=== PATIENT | female | born 1990 | race Hispanic/Latino ===

== ENCOUNTER 2024-05-24 21:43 | Emergency (ER) | payer MEDICAID, SELFPAY ==
[2024-05-24 21:44] VITALS: BP 194/111
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
[2024-05-24] MEDS: TYLENOL 650 MG PO (23:18)
[2024-05-24 23:29] VITALS: BP 138/85
== END 2024-05-24 23:31 | disposition home or self-care (01) ==
LOC: EMR 21:43
PROVIDERS: EMERGENCY PHYSICIAN Student in an Organized Health Care Education/Training Program
DX: S40.012A Contusion of left shoulder, initial encounter (principal); X58.XXXA Exposure to other specified factors, initial encounter; J45.909 Unspecified asthma, uncomplicated; G47.30 Sleep apnea, unspecified
CPT/HCPCS: 99283; 73030

== ENCOUNTER 2024-07-06 18:34 | Emergency (ER) | payer SELFPAY ==
[2024-07-06 18:39] VITALS: BP 179/108
[2024-07-06 19:29] LABS: COVID-19 Antigen Negative (Negative)
--- NOTE | 2024-07-06 21:46 | ED.GENMED ---
History of Present Illness
General
Chief Complaint: Cold/Flu/URI Symptoms
Source: patient
Exam Limitations: none
Time Seen by Provider: 07/06/24 21:29
History of Present Illness
History of Present Illness:
This is a 34 year old female that comes in with c/o cough and sore throat with some chest discomfort. States that the chest discomfort is with coughing. States that this started on Tuesday as she felt sick and on she felt worse. States
that she feels SOB with the cough and has a headache. Denies any fever, chills, chest pain, abd pain, nausea, vomiting, diarrhea, dizziness, urinary burning.
Past History
Past History
ED Past Medical History: Asthma, Psychiatric (Anxiety, Bipolar, Depression) and Other (Sleep apnea, Bronchitis, )
ED Past Surgical History: Orthopedic (right arm surgery)
Social History
Tobacco: Smoker
Alcohol: None
Drug: None
Personal: Single
Living: with family
Employment: Employed
Review of Systems
Review of Systems
All Other Systems: ROS reviewed and negative except as documented in HPI and ROS
Constitutional: Reports no symptoms; Denies fever or chills
EENT: Reports sore throat
Respiratory: Reports cough and trouble breathing
Cardiac: Reports no symptoms; Denies chest pain
ABD/GI: Reports no symptoms; Denies abdominal pain, nausea, vomiting or diarrhea
: Reports no symptoms; Denies dysuria, frequency or urgency
Musculoskeletal: Reports no symptoms
Skin: Reports no symptoms
Neurological: Reports headache; Denies dizzy
Psychiatric: Reports no symptoms
Phy Exam
General Physical Exam
General Presentation: well appearing and no apparent distress
General age: appears stated age
General Skin: warm and dry
General Habitus: normal
General Mental: alert
General Hydration: appears well hydrated
ENT Exam
ENT Exam: TM's normal, pharynx normal and neck supple
Eye Exam
Eye Exam: EOMI
Cardiovascular Exam
Cardiovascular Exam: regular rate/rhythm, no edema, no murmur and normal peripheral pulses
Pulmonary Exam
Pulmonary Exam: no respiratory distress, no rales, chest non tender, no crackles, no rhonchi, no stridor and other (faint insp wheezing throughout, Dry cough noted)
Musculoskeletal Exam
Musculoskeletal Exam: full ROM and no edema
Skin Exam
Skin Exam: normal color, warm/dry, no rash and no petechia
Psychiatric Exam
Psychiatric Exam: normal mood/affect
Course
Orders/Labs/Results
Orders:
Orders
07/06/24 18:42
Chest [CR Chest - 2 Views ] Urgent
Comment:
Reason For Exam: cough
07/06/24 18:47
COVID-19 Antigen Urgent
Source: Nasal Swab
Influenza A+B Rapid Molecular Urgent
[facility] Source: Nasal Swab
Specimen Description:
07/06/24 21:47
Prednisone [Deltasone] 40 mg PO NOW STA
07/06/24 22:02
Rapid Strep Group A Urgent
[facility] Source: Throat/Pharynx
Specimen Description:
Date Specimen was Collected: 07/06/24
Time Specimen was Collected: 21:56
COVID and Influenza negative
Vital Signs
Initial and Last Documented VS:
Initial Vital Signs
Temp Pulse Resp BP Pulse Ox
98.5 F 120 16 179/108 98
07/06/24 18:39 07/06/24 18:39 07/06/24 18:39 07/06/24 18:39 07/06/24 18:39
Last Documented Vital Signs
Temp Pulse Resp BP Pulse Ox
98.5 F 92 18 125/71 98
07/06/24 18:39 07/06/24 22:13 07/06/24 22:13 07/06/24 22:13 07/06/24 22:13
MDM/Problems Addressed
Differential Diagnosis Includes:
Asthma, COVID, Flu
MDM/Problems Addressed:
This is a 34 year old female that comes in with c/o cough and SOB. States that this started on Tuesday and on she felt worse.
Explained to patient that she has faint Insp wheezing throughout. Patient chest x-ray is negative and she is negative for COVID and Influenza. Will get Rapid strep. IF negative will dischrage patient home on Steroids and give a prescription for an
albuterol inhaler. Patient encouraged to increase her water intake to 8-8oz glasses daily. Return with any concerns.
Chronic conditions affecting care: Asthma
Acute Exacerbation and/or Progression of Chronic Illness: Asthma
*Radiology
Radiology exam reviewed: radiology read reviewed (Chest- No acute cardiopulmonary process. )
*Pulse Oximetry
Patient hypoxic: no
*EKG
Interpreted by ED Provider?: NA
Rate: EKG- N/A
*Client Account Manager Interpretation
Rate: Client Account Manager- N/A
*Critical Care Note
Total Time (30-74mins, 75-104mins- exclusive of procedures): Not Applicable
ED Attending Note
-
Portions of this chart may have been created with voice recognition software.� Occasional wrong word or��sound alike� substitutions may have occurred due to the inherent limitations of voice recognition software.
Discharge Plan
Departure
Patient Disposition: Home (Routine Discharge)
Date of Disposition: 07/06/24
Time of Disposition: 22:38
Patient with high blood pressure during this ER visit?: No
Condition: Good
Covid-19: Negative COVID-19
Discharge Problem:
Asthma
Instructions: Asthma, Adult ED
Prescriptions:
New
prednisone 20 mg tablet
40 mg PO DAILY Qty: 8 0RF
albuterol sulfate 90 mcg/actuation HFA aerosol inhaler
2 puff inhalation Q4H PRN (Reason: shortness of breath or wheezing) Qty: 8.5 0RF
No Action
famotidine 20 MG tablet
20 mg PO BID Qty: 28 0RF
Rx Instructions:
Take 20 mg twice a day for 14 days
ascorbic acid (vitamin C) [Vitamin C] 500 MG tablet
1,000 mg PO BID Qty: 56 0RF
Rx Instructions:
Take 1,000 mg twice a day for 14 days
aspirin 81 MG tablet,chewable
81 mg PO DAILY Qty: 14 0RF
Rx Instructions:
Take 81 mg daily for 14 days
albuterol sulfate 1 PUFF HFA aerosol inhaler
2 puff inhalation R Q4HPRN PRN (Reason: shortness of breath) Qty: 1 0RF
zinc sulfate 220 MG capsule
220 mg PO DAILY Qty: 14 0RF
Rx Instructions:
Take 220 mg daily for 14 days
cholecalciferol (vitamin D3) 1,000 UNITS tablet
2,000 units PO DAILY Qty: 28 0RF
Rx Instructions:
Take 2,000 units daily for 14 days
melatonin 5 MG tablet
5 mg PO HS Qty: 14 0RF
Rx Instructions:
Take 5 mg daily at bedtime for 14 days
Referrals:
NONE,* [Family Provider] -
Activity Restrictions/Additional Instructions:
As discussed, you are negative for COVID, Influenza and Your rapid strep is negative. Your chest X-ray is normal. This is most likely your asthma as you are a little wheezy. You have been given your first dose of Prednisone here and a prescription
has been sent to your pharmacy for the next 4 days. You have also had a prescription sent to an Albuterol inhaler. Please follow up with the family doctor for recheck. Please increase your water intake to 8-8oz glasses daily. IF YOU HAVE ANY OTHER
CONCERNS PLEASE RETURN TO THE EMERGENCY ROOM.
Interventions
Interventions:
*Risk Screen - Suicide Last Done: 07/06/24 18:41
*General Assessment Last Done: 07/06/24 22:10
*Neglect/Abuse Screening Last Done: 07/06/24 18:41
ED- Pulmonary Assessment Last Done: 07/06/24 22:10
Discharge Date and Time
Print Language: JAPANESE
[2024-07-06] MEDS: DELTASONE 40 MG PO (22:08)
[2024-07-06 22:13] VITALS: BP 125/71
[2024-07-06 22:51] VITALS: BP 146/96
== END 2024-07-06 22:52 | disposition home or self-care (01) ==
LOC: EMR 18:34
PROVIDERS: Registered Nurse; EMERGENCY PHYSICIAN Emergency Medicine
DX: J45.909 Unspecified asthma, uncomplicated (principal); Z11.52 Encounter for screening for COVID-19; F17.200 Nicotine dependence, unspecified, uncomplicated
CPT/HCPCS: 99284; 71046; 87070; 87502; 87811; 87880

== ENCOUNTER 2024-10-26 11:10 | Emergency (ER) | payer MEDICAID, SELFPAY ==
[2024-10-26 11:12] VITALS: BP 133/75
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
[2024-10-26] MEDS: MOTRIN 400 MG PO (13:20)
== END 2024-10-26 13:29 | disposition home or self-care (01) ==
LOC: EMR 11:10
PROVIDERS: EMERGENCY PHYSICIAN Student in an Organized Health Care Education/Training Program
DX: S46.911A Strain of unspecified muscle, fascia and tendon at shoulder and upper arm level, right arm, initial encounter (principal); X58.XXXA Exposure to other specified factors, initial encounter; F17.200 Nicotine dependence, unspecified, uncomplicated
CPT/HCPCS: 99283; 73030

== ENCOUNTER 2025-07-29 12:13 | Emergency (ER) | payer SELFPAY ==
[2025-07-29 12:15] VITALS: BP 137/78
[2025-07-29 12:50] LABS: COVID-19 Antigen Negative (Negative)
--- NOTE | 2025-07-29 13:32 | ED.GENMED ---
History of Present Illness
General
Chief Complaint: Cold/Flu/URI Symptoms
Source: patient
Exam Limitations: none
Time Seen by Provider: 07/29/25 13:17
History of Present Illness
History of Present Illness:
35-year-old female presents complaining of 3 days worth of cough fatigue shortness of breath chest tightness. She has been using her inhaler which she also notes sweats. No known sick contacts. No other complaints
Past History
Past History
ED Past Medical History: Asthma, Psychiatric (Anxiety, Bipolar, Depression) and Other (Sleep apnea, Bronchitis, )
ED Past Surgical History: Orthopedic (right arm surgery)
Social History
Tobacco: Smoker
Alcohol: None
Drug: None
Personal: Single
Living: with family
Employment: Employed
Phy Exam
Physical Exam
Physical Exam:
Left general: Well-appearing female in no acute respiratory HEENT: Normal cephalic atraumatic
Heart: Regular rate and rhythm
Lungs: Mild expiratory wheeze bilaterally
Extremities: No cyanosis with
Course
Orders/Labs/Results
Orders:
Orders
07/29/25 12:17
Electrocardiogram (*1) Urgent
Reason for Study: Chest Pain
EKG- Treatment ONCE
07/29/25 12:26
COVID-19 Antigen Urgent
Source: Nasal Swab
Influenza A+B Rapid Molecular Urgent
[facility] Source: Nasal Swab
Specimen Description:
07/29/25 13:25
Ipratropium/Albuterol Sulfate [Duoneb] 3 ml INH R NOW STA
CR Chest - 2 Views Urgent
Comment:
Reason For Exam: cough
Vital Signs
Initial and Last Documented VS:
Initial Vital Signs
Temp Pulse Resp BP Pulse Ox
98.3 F 92 16 137/78 100
07/29/25 12:15 07/29/25 12:15 07/29/25 12:15 07/29/25 12:15 07/29/25 12:15
Last Documented Vital Signs
Temp Pulse Resp BP Pulse Ox
98.3 F 80 18 134/69 97
07/29/25 12:15 07/29/25 15:08 07/29/25 15:08 07/29/25 15:08 07/29/25 15:08
MDM/Problems Addressed
Differential Diagnosis Includes:
Patient with chest tightness cough sweats. Consider viral illness such as COVID flu or pneumonia or bronchitis. Will try DuoNeb. COVID and flu test were ordered in triage which were negative. Chest x-ray ordered
*Pulse Oximetry
SaO2: 100
Oxygen Mode of Delivery: Room air
Patient hypoxic: no
*Critical Care Note
Total Time (30-74mins, 75-104mins- exclusive of procedures): Not Applicable
Update Note
Update Note:
Chest x-ray negative. I suspect acute bronchitis. She ran out of her inhaler. Will refill this and prescribe couple days of prednisone. No indication for antibiotics. Stable for discharge
ED Attending Note
-
Portions of this chart may have been created with voice recognition software.� Occasional wrong word or��sound alike� substitutions may have occurred due to the inherent limitations of voice recognition software.
Discharge Plan
Departure
Patient Disposition: Home (Routine Discharge)
Date of Disposition: 07/29/25
Time of Disposition: 15:11
Patient with high blood pressure during this ER visit?: No
Discharge Problem:
Acute bronchitis
Instructions: Acute Bronchitis, Adult (DC)
Prescriptions:
New
albuterol sulfate 90 mcg/actuation aerosol powdr breath activated
2 inh inhalation Q6H PRN (Reason: shortness of breath) Qty: 1 0RF
prednisone 20 mg tablet
40 mg PO DAILY 5 Days Qty: 10 0RF
No Action
famotidine 20 MG tablet
20 mg PO BID Qty: 28 0RF
Rx Instructions:
Take 20 mg twice a day for 14 days
ascorbic acid (vitamin C) [Vitamin C] 500 MG tablet
1,000 mg PO BID Qty: 56 0RF
Rx Instructions:
Take 1,000 mg twice a day for 14 days
aspirin 81 MG tablet,chewable
81 mg PO DAILY Qty: 14 0RF
Rx Instructions:
Take 81 mg daily for 14 days
albuterol sulfate 1 PUFF HFA aerosol inhaler
2 puff inhalation R Q4HPRN PRN (Reason: shortness of breath) Qty: 1 0RF
zinc sulfate 220 MG capsule
220 mg PO DAILY Qty: 14 0RF
Rx Instructions:
Take 220 mg daily for 14 days
cholecalciferol (vitamin D3) 1,000 UNITS tablet
2,000 units PO DAILY Qty: 28 0RF
Rx Instructions:
Take 2,000 units daily for 14 days
melatonin 5 MG tablet
5 mg PO HS Qty: 14 0RF
Rx Instructions:
Take 5 mg daily at bedtime for 14 days
prednisone 20 mg tablet
40 mg PO DAILY Qty: 8 0RF
albuterol sulfate 90 mcg/actuation HFA aerosol inhaler
2 puff inhalation Q4H PRN (Reason: shortness of breath or wheezing) Qty: 8.5 0RF
Referrals:
UNKNOWN - PT DOES,NOT KNOW [Family Provider]
Activity Restrictions/Additional Instructions:
Rest. Drink plenty of fluids. Use inhaler and steroid as directed. Return if worse in the next follow-up with your doctor.
Interventions
Interventions:
*General Assessment Last Done: 07/29/25 12:15
*Neglect/Abuse Screening Last Done: 07/29/25 12:15
*ED COVID-19 Vaccine History Last Done: 07/29/25 14:01
*ED Influenza Vaccine History Last Done: 07/29/25 14:01
[facility] Fall Risk Assessment Tool Last Done: 07/29/25 12:48
*Risk Screen - Suicide (C-SSRS) Last Done: 07/29/25 14:01
ED- Pulmonary Assessment Last Done: 07/29/25 14:03
Discharge Date and Time
Print Language: MALAWIAN
[2025-07-29] MEDS: DUONEB 3 ML INH (14:00)
[2025-07-29 15:08] VITALS: BP 134/69
== END 2025-07-29 15:20 | disposition home or self-care (01) ==
LOC: EMR 12:13
PROVIDERS: Emergency Medicine; EMERGENCY PHYSICIAN Emergency Medicine
DX: J20.9 Acute bronchitis, unspecified (principal); R61 Generalized hyperhidrosis; Z11.52 Encounter for screening for COVID-19; J45.909 Unspecified asthma, uncomplicated; F31.9 Bipolar disorder, unspecified; F41.9 Anxiety disorder, unspecified; F32.A Depression, unspecified; G47.30 Sleep apnea, unspecified; F17.200 Nicotine dependence, unspecified, uncomplicated; Z91.018 Allergy to other foods
CPT/HCPCS: 99283; 94640; 71046; 87502; 87811; 93005